=== PATIENT | male | born 1990 | race African-American/Black ===

== ENCOUNTER 2017-11-18 09:53 | Emergency (ER) | END 2017-11-18 11:40 | disposition home or self-care (01) ==

== ENCOUNTER 2018-11-26 23:13 | Emergency (ER) | payer SELFPAY ==
[~2018-11-26] VITALS: Ht 180.3 cm; Wt 60.7 kg
[~2018-11-26 23:13] MED LIST: [UNRECOGNIZED DRUG - CODE] TP
[2018-11-26 23:16] VITALS: BP 133/94; PULSE 70; RESP 20; Ht 180.3 cm; Wt 60.7 kg
[2018-11-27] MEDS ORDERED: IBUP-1542 PO (14:43)
== END 2018-11-27 00:54 | disposition left against medical advice (07) ==
LOC: FTE 23:13
DX: Z53.21 Procedure and treatment not carried out due to patient leaving prior to being seen by health care provider (principal)
CPT/HCPCS: 93005

== ENCOUNTER 2018-11-27 12:47 | Emergency (ER) | payer SELFPAY ==
[~2018-11-27] VITALS: Ht 170.2 cm; Wt 61.0 kg
[2018-11-27 13:02] VITALS: BP 109/75; PULSE 70; RESP 16; Ht 170.2 cm; Wt 61.0 kg
--- NOTE | 2018-11-27 14:11 | ERD ---
ER Documentation Chief Complaint Chief Complaint CP X 1 DAY. EKG DONE IN TRIAGE HPI 28-year-old male with no past medical history, history of spontaneous pneumothorax in 2013 which required hospitalization and chest tube placement. 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 Denies radiation of chest pain, diaphoresis, pain and discomfort made worse with deep inhalation. He is concerned because he had similar symptoms prior to reported spontaneous pneumothorax in 2013. Was in the ER waiting room last night but left after waiting over 3 hours. He denies any history of congenital heart disease or any history of early cardiac . He denies hemoptysis, dyspnea on exertion, fevers, chills cough, recent URI type symptoms, nausea vomiting, abdominal pain. At time of examination patient is nontoxic-appearing no acute distress with good breath sounds bilaterally. EKG with normal sinus rhythm with no evidence of ischemic changes. ROS All systems reviewed and are negative except as per history of present illness. Medications Home Meds Active Scripts Ibuprofen* (Motrin*) 600 Mg Tab, 600 MG PO Q6H PRN for PAIN AND OR ELEVATED TEMP, #30 TAB Prov:DAVID MAGUIRE PA-C 11/27/18 Desonide (Desonide) 60 Gm Oint..gm., 1 APPLIC TP BID for 7 Days, TUB Prov:LIANA STEVENSON PA-C 11/18/17 Allergies Allergies: Coded Allergies: amoxicillin (Verified Allergy, Severe, TONGUE AN, 06/09/15) morphine (Verified Allergy, Severe, RASH/SWELLING, 06/09/15) ketorolac tromethamine (Verified Allergy, Mild, rashes, 06/09/15) PMhx/Soc History of Surgery: Yes (Right LUNG 01/2013) Anesthesia Reaction: No Hx Neurological Disorder: No Hx Respiratory Disorders: Yes (Pneumothorax) Hx Cardiac Disorders: No Hx Psychiatric Problems: No Hx Miscellaneous Medical Probl: No Hx Alcohol Use: Yes (socially) Hx Substance Use: No Hx Tobacco Use: No Physical Exam Vitals Vital Signs Date Temp Pulse Resp B/P (MAP) Pulse Ox O2 O2 Flow FiO2 Time Delivery Rate 11/27/18 98.3 70 16 109/75 99 13:02 (86) Physical Exam I have reviewed the triage vital signs. Const: Well nourished, well developed, appears stated age, thin and tall Eyes: PERRL, no conjunctival injection HENT: NCAT, Neck supple without meningismus CV: RRR, Warm, well-perfused extremities RESP: CTAB, Unlabored respiratory effort GI: soft, non-tender, non-distended, no masses MSK: No gross deformities appreciated Skin: Warm, dry. No rashes Neuro: grossly non focal Psych: Appropriate mood and affect. Procedures/MDM 28-year-old healthy male, tall and thin with past medical history of spontaneous pneumothorax who presents with chest pain. His EKG is with normal sinus rhythm with no ischemic changes. He has good breath sounds bilaterally. X-ray of chest with without acute findings. . ED course: ECG without overt e/o STEMI, Brugadas sign, delta wave, epsilon wave, significantly prolonged QTc, or malignant arrhythmia. Low Wells score with low risk for PE and no significant hypoxia. Given chronicity and pain characteristics, low s/f dissection. Exam and history not consistent with significant PTX or PNA. Pain controlled, well appearing. Cautious return precautions discussed with full understanding. Prompt follow up with primary care physician discussed. DISPOSITION PLAN: We discussed follow up with the patient's primary care doctor within 24 to 48 hours. Patient counseled regarding my diagnostic impression and care plan. Prior to discharge all questions answered. Pt agrees with treatment plan and understands strict return precautions. Precautionary instructions provided including instructions to return to the ER if not improving or for any worsening or changing symptoms or concerns. Departure Diagnosis: Primary Impression: Chest pain Condition: Stable DAVID MAGUIRE PA-C Nov 27, 2018 14:11
[2018-11-27] MEDS ORDERED: IBUP-1542 PO (14:43)
== END 2018-11-27 14:50 | disposition home or self-care (01) ==
LOC: FTE 12:47
DX: R07.89 Other chest pain (principal)
CPT/HCPCS: 71046; 93005

== ENCOUNTER 2019-02-24 22:15 | Emergency (ER) | payer SELFPAY ==
[~2019-02-24] VITALS: Ht 180.3 cm; Wt 61.1 kg
[~2019-02-24 22:15] MED LIST changes: +IBUP-1542 PO
[2019-02-24 22:21] VITALS: BP 133/85; PULSE 85; RESP 20; Ht 180.3 cm; Wt 61.1 kg
--- NOTE | 2019-02-24 23:01 | ERD ---
ER Documentation Chief Complaint Chief Complaint Pt reports dry cough x 2 weeks, pt hx spontaneous pneumothorax 2013 HPI This is a pleasant 29-year-old male who presents for evaluation of a dry cough for the last 2 weeks. He was in [place] 2 weeks ago, and states may be have been exposed to smoke at that time, he denies fever or shortness of breath. He has spontaneous pneumothorax in 2012, which required thoracostomy, he has not had recurrence since then. There are no alleviating or aggravating factors, he does not smoke no history of asthma or COPD. ROS All systems reviewed and are negative except as per history of present illness. Medications Home Meds Active Scripts Albuterol Sulfate* (Ventolin HFA*) 18 Gm Hfa.aer.ad, 2 PUFF INHALATION Q6H for cough, #1 INHALER Prov:FELICIA BONILLA MD 02/24/19 Ibuprofen* (Motrin*) 600 Mg Tab, 600 MG PO Q6H PRN for PAIN AND OR ELEVATED TEMP, #30 TAB Prov:DAVID MAGUIRE PA-C 11/27/18 Desonide (Desonide) 60 Gm Oint..gm., 1 APPLIC TP BID for 7 Days, TUB Prov:LIANA STEVENSON PA-C 11/18/17 Allergies Allergies: Coded Allergies: amoxicillin (Verified Allergy, Severe, TONGUE AN, 06/09/15) morphine (Verified Allergy, Severe, RASH/SWELLING, 06/09/15) ketorolac tromethamine (Verified Allergy, Mild, rashes, 06/09/15) PMhx/Soc History of Surgery: Yes (Right LUNG 01/2013) Anesthesia Reaction: No Hx Neurological Disorder: No Hx Respiratory Disorders: Yes (Pneumothorax 2012) Hx Cardiac Disorders: No Hx Psychiatric Problems: No Hx Miscellaneous Medical Probl: No Hx Alcohol Use: Yes (socially) Hx Substance Use: No Hx Tobacco Use: No Smoking Status: Never smoker Physical Exam Vitals Vital Signs Date Temp Pulse Resp B/P (MAP) Pulse Ox O2 O2 Flow FiO2 Time Delivery Rate 02/24/19 97.8 85 20 133/85 99 22:21 (101) Physical Exam Const: No acute distress. Actively coughing in room Head: Atraumatic Eyes: Normal Conjunctiva ENT: Normal External Ears, Nose and Mouth. Neck: Full range of motion. No meningismus. Resp: Clear to auscultation bilaterally, no wheezes rales or rhonchi Cardio: Regular rate and rhythm, no murmurs Abd: Soft, non tender, non distended. Normal bowel sounds Skin: No petechiae or rashes Back: No midline or flank tenderness Ext: No cyanosis, or edema Neur: Awake and alert Psych: Normal Mood and Affect Procedures/MDM 29-year-old male presents for relation of cough. Well-appearing and nontoxic in no respiratory distress, no signs of infection, patient has no history of underlying pulmonary disease, as noted above he has a history of a prior spontaneous pneumothorax. Prescription for albuterol inhaler provided, for symptomatic care. His chest x-ray was negative. Departure Diagnosis: Primary Impression: Cough Condition: Good Patient Instructions: Cough, Chronic, Uncertain Cause, (Adult) FELICIA BONILLA MD Feb 24, 2019 23:01
[2019-02-24] MEDS ORDERED: ALBU18HF INHALATION (23:02)
== END 2019-02-24 23:41 | disposition home or self-care (01) ==
LOC: FTE 22:15
DX: R05 Cough (principal)
CPT/HCPCS: 71045